=== PATIENT | female | born 1995 | race Two or more races ===

== ENCOUNTER 2022-03-18 19:37 | Emergency (ER) | payer OTHER ==
[~2022-03-18] VITALS: Ht 167.6 cm; Wt 68.0 kg
[2022-03-18 19:37] VITALS: BP 123/90
[2022-03-19] MEDS ORDERED: AMOX-277 PO (00:21)
[2022-03-19] MEDS ORDERED: ACET-1158 PO (00:21)
== END 2022-03-19 00:39 | disposition home or self-care (01) ==
LOC: ER 19:42
DX: H66.92 Otitis media, unspecified, left ear (principal); J02.9 Acute pharyngitis, unspecified